=== PATIENT | male | born 1985 | race Asian ===

== ENCOUNTER 2024-07-14 17:56 | Emergency (ER) | payer OTHER, SELFPAY ==
[2024-07-14 17:58] VITALS: BP 132/81
--- NOTE | 2024-07-14 18:43 | ED.GENMED ---
History of Present Illness
General
Chief Complaint: Skin Problem
Source: patient
Exam Limitations: none
Time Seen by Provider: 07/14/24 18:15
History of Present Illness
History of Present Illness:
38yo right hand dominant male presenting for evaluation of a left index finger injury. Patient was putting a screw into drywall yesterday when he accidentally put the screw through the distal aspect of the index finger. The nail went through the
opposite side. He was able to remove the screw in its entirety. Patient wants to make sure that he does not have any bone injuries so decided to come to the ED. Unknown last tetanus.
Past History
Past History
ED Past Medical History: None
ED Past Surgical History: None
Social History
Tobacco: Non-smoker
Alcohol: Occasional
Drug: None
Personal:
Living: with family
Phy Exam
General Physical Exam
General Presentation: well appearing and no apparent distress
General age: appears stated age
General Skin: warm and dry
General Habitus: normal
General Mental: alert
ENT Exam
ENT Exam: normocephalic
Musculoskeletal Exam
Musculoskeletal Exam: other (L index finger: Puncture wound noted to the distal fingertip that is scabbed over. Does involve the distal aspect of the nail but nailbed is firmly in place. ROM of DIP and PIP joint intact. Cap refill and sensation
intact at fingertip.)
Skin Exam
Skin Exam: normal color and warm/dry
Psychiatric Exam
Psychiatric Exam: normal mood/affect
Course
Orders/Labs/Results
Orders:
Orders
07/14/24 18:41
Tetanus/Diphth/Acelpertussis [Adacel] 0.5 ml IM .ONCE ONE
CR Finger(s)/thumb Min 2 Vw Lt Urgent
Comment:
Reason For Exam: Nail injury to L index finger
Vital Signs
Initial and Last Documented VS:
Initial Vital Signs
Temp Pulse Resp BP Pulse Ox
98.4 F 77 16 132/81 100
07/14/24 17:58 07/14/24 17:58 07/14/24 17:58 07/14/24 17:58 07/14/24 17:58
Last Documented Vital Signs
Temp Pulse Resp BP Pulse Ox
98.4 F 81 16 128/78 100
07/14/24 17:58 07/14/24 20:02 07/14/24 20:02 07/14/24 20:02 07/14/24 20:02
MDM/Problems Addressed
Differential Diagnosis Includes:
38yoM here for a puncture wound to the L index finger after accidentally putting a metal nail through his finger. Injury was last night and he was able to remove the nail. Scabbed puncture wound noted on exam. ROM normal and digit is neurovascularly
intact. Differential diagnosis includes: puncture wound, fracture
Tdap updated. X-rays obtained which are negative for fractures per my interpretation. He was started on a course of Keflex for infection prophylaxis. Advised return to the ED with any signs of infection.
*Critical Care Note
Total Time (30-74mins, 75-104mins- exclusive of procedures): Not Applicable
ED Attending Note
-
Portions of this chart may have been created with voice recognition software.� Occasional wrong word or��sound alike� substitutions may have occurred due to the inherent limitations of voice recognition software.
Discharge Plan
Departure
Patient Disposition: Home (Routine Discharge)
Date of Disposition: 07/14/24
Time of Disposition: 19:58
Patient with high blood pressure during this ER visit?: No
Discharge Problem:
Puncture wound of left index finger
Instructions: Puncture Wound
Prescriptions:
New
cephalexin 500 mg capsule
500 mg PO Q6H 5 Days Qty: 20 0RF
No Action
ondansetron 4 MG tablet,disintegrating
4 mg PO TIDPRN PRN (Reason: nausea/vomiting) Qty: 10 0RF
penicillin V potassium 500 MG tablet
500 mg PO TID Qty: 21 0RF
tramadol 50 MG tablet
50 mg PO Q6HPRN PRN (Reason: PAIN) Qty: 11 0RF
Referrals:
Robin Finley MD [Family Provider] -
Activity Restrictions/Additional Instructions:
Take antibiotics as prescribed. Keep wound clean and dry.
Return to the ER with any signs of infection.
Interventions
Interventions:
*Risk Screen - Suicide Last Done: 07/14/24 17:58
*General Assessment Last Done: 07/14/24 17:58
*Neglect/Abuse Screening Last Done: 07/14/24 17:58
*ED- Fall Risk Assessment Last Done: 07/14/24 18:04
*ED COVID-19 Vaccine History Last Done: 07/14/24 18:04
*Nursing Disposition Last Done: 07/14/24 20:02
ED-Skin Assessment Last Done: 07/14/24 20:02
Discharge Date and Time
Discharge Date/Time: 07/14/24 20:06
Print Language: TOGOLESE
[2024-07-14] MEDS: ADACEL 0.5 ML IM (18:46)
[2024-07-14 20:02] VITALS: BP 128/78
== END 2024-07-14 20:06 | disposition home or self-care (01) ==
LOC: EMR 17:56
PROVIDERS: EMERGENCY PHYSICIAN Emergency Medicine; FAMILY PHYSICIAN Internal Medicine
DX: S61.231A Puncture wound without foreign body of left index finger without damage to nail, initial encounter (principal); W45.0XXA Nail entering through skin, initial encounter; Z23 Encounter for immunization
CPT/HCPCS: 90471; 99283; 73140; 90715

== ENCOUNTER 2024-09-29 01:33 | Emergency (ER) | payer OTHER, SELFPAY ==
[2024-09-29 01:44] VITALS: BP 128/76
--- NOTE | 2024-09-29 07:20 | ED.GENMED ---
History of Present Illness
General
Chief Complaint: Abdominal Symptoms
Source: patient
Exam Limitations: none
Time Seen by Provider: 09/29/24 04:39
Nursing documentation reviewed up to this point in time: agreed with
History of Present Illness
History of Present Illness:
Note:
CHIEF COMPLAINT(S)
Diarrhea
HISTORY OF PRESENT ILLNESS
The patient is a 38-year-old male who presented with diarrhea. He reported the onset of diarrhea approximately four days ago, with episodes occurring three to four times. The most recent occurrence was two hours prior to the consultation. The
patient denies the presence of blood in the stool and has not experienced fever. He mentioned a possible etiological factor, speculating it could be due to something he consumed. The patient expressed concern about the potential for a contagious
cause but noted that his daughter had typhoid.
PHYSICAL EXAM
- General: The patient appeared in no acute distress and was afebrile.
- Head: Moist mucous membranes.
- Cardiovascular: Regular rate and rhythm; normal heart sounds with no additional sounds.
- Pulmonary: No respiratory distress noted.
- Abdominal: Soft and non-tender, without distention or organomegaly.
- Rectal: Noted mild erythema upon examination.
PLAN
1. Considering outpatient testing for stool in the context of no fever and lack of diarrhea sample during the visit.
2. Patient education regarding hydration and monitoring for additional symptoms.
3. Follow-up recommended if symptoms persist or worsen.
DIFFERENTIAL DIAGNOSIS
The Differential Diagnosis includes, in no particular order and is not limited to:
1. Gastroenteritis
2. Foodborne illness
3. Inflammatory bowel disease
4. Irritable bowel syndrome
5. Lactose intolerance
6. Celiac disease
7. Medication-induced diarrhea
8. Infectious colitis
9. Travelers diarrhea
10. Diverticulitis
CARE-UPDATE
09/29/24 - 07:22
During this visit, the patient reports no diarrhea or fevers, with no presence of blood in stool. Blood cultures will be checked prior to discharge. Stool culture results are not available at this time. Return precautions have been provided to the
patient.
Disposition:
SUMMARY OF ENCOUNTER
The patient, a 38-year-old male, was seen in the emergency department for diarrhea that started approximately four days ago. He experienced episodes three to four times a day, with the most recent occurrence two hours before consultation. There is
no presence of blood in the stool and no fever reported. The patient is concerned about the potential contagious nature of the diarrhea, given his daughters recent typhoid diagnosis; however, he suspects the cause might be related to something he
consumed. A comprehensive physical examination showed no acute distress, afebrile status, moist mucous membranes, regular cardiovascular rhythm, no respiratory distress, and a soft, non-tender abdomen. Mild rectal erythema was noted.
PLAN
The patient was advised for outpatient stool testing considering the absence of fever and diarrhea sample during the visit. Patient education on the importance of staying hydrated and monitoring additional symptoms was provided. Follow-up care was
recommended should symptoms persist or worsen.
PATIENT EDUCATION AND COUNSELING
The patient was informed about the potential causes of diarrhea, such as dietary factors or infectious agents. He was educated on maintaining adequate hydration and monitoring for any new symptoms or changes in symptom severity. Return precautions
were given if symptoms did not improve or if they escalated.
FOLLOW-UP INSTRUCTIONS
The patient was advised to follow up with a healthcare provider if the symptoms persist or worsen to reassess the situation, as further evaluation might be necessary.
MEDICAL DECISION MAKING
-Complexity of Data Reviewed: Differential diagnosis considered includes gastroenteritis, foodborne illness, inflammatory bowel disease, irritable bowel syndrome, lactose intolerance, celiac disease, medication-induced diarrhea, infectious colitis,
travelers diarrhea, and diverticulitis.
-Risk: Consideration of admission/observation was discussed; however, the patient was managed with outpatient follow-up due to stable exam findings, absence of alarming symptoms, and patient�s ability to understand and comply with discharge
instructions.
DIAGNOSIS
- Diarrhea, unspecified (ICD-10 code: R19.7)
Past History
Past History
ED Past Medical History: None
ED Past Surgical History: None
Social History
Tobacco: Non-smoker
Alcohol: Occasional
Drug: None
Personal:
Living: with family
Phy Exam
Physical Exam
Physical Exam:
.
Sepsis
Sepsis Screening
Sepsis Assessment: Sepsis Ruled Out
Sepsis Screen
Sepsis Screen: Sepsis Ruled Out
Date: 09/29/24
Time: 07:24
Course
Orders/Labs/Results
Orders:
Orders
09/29/24 07:00
Blood Culture Q30M
DEEP Source: Blood/Venous
Specimen Description:
09/29/24 07:30
Blood Culture Q30M
DEEP Source: Blood/Venous
Specimen Description:
Vital Signs
Initial and Last Documented VS:
Initial Vital Signs
Temp Pulse Resp BP Pulse Ox
97.9 F 64 20 128/76 100
09/29/24 01:44 09/29/24 01:44 09/29/24 01:44 09/29/24 01:44 09/29/24 01:44
Last Documented Vital Signs
Temp Pulse Resp BP Pulse Ox
97.9 F 64 20 128/76 100
09/29/24 01:44 09/29/24 01:44 09/29/24 01:44 09/29/24 01:44 09/29/24 01:44
*Pulse Oximetry
SaO2: 100
Oxygen Mode of Delivery: Room air
Patient hypoxic: no
*Critical Care Note
Total Time (30-74mins, 75-104mins- exclusive of procedures): Not Applicable
ED Attending Note
-
Portions of this chart may have been created with voice recognition software.� Occasional wrong word or��sound alike� substitutions may have occurred due to the inherent limitations of voice recognition software.
Discharge Plan
Departure
Patient Disposition: Home (Routine Discharge)
Date of Disposition: 09/29/24
Time of Disposition: 07:23
Patient with high blood pressure during this ER visit?: Yes
Condition: Good
Discharge Problem:
Diarrhea
Instructions: Diarrhea in teens and adults, Randall Diet, BLOOD PRESSURE
Prescriptions:
No Action
ondansetron 4 MG tablet,disintegrating
4 mg PO TIDPRN PRN (Reason: nausea/vomiting) Qty: 10 0RF
penicillin V potassium 500 MG tablet
500 mg PO TID Qty: 21 0RF
tramadol 50 MG tablet
50 mg PO Q6HPRN PRN (Reason: PAIN) Qty: 11 0RF
cephalexin 500 mg capsule
500 mg PO Q6H 5 Days Qty: 20 0RF
Referrals:
NONE,* [Family Provider, Internal Medicine]
Activity Restrictions/Additional Instructions:
Follow up with primary care in 3-5 days. Return for any concerns.
Interventions
Interventions:
*Risk Screen - Suicide Last Done: 09/29/24 01:44
*General Assessment Last Done: 09/29/24 06:03
*Neglect/Abuse Screening Last Done: 09/29/24 01:44
*ED- Fall Risk Assessment Last Done: 09/29/24 06:03
*ED COVID-19 Vaccine History Last Done: 09/29/24 06:03
WI-Xsfsxr-Mjuvhxwjci Assessment Last Done: 09/29/24 06:04
Discharge Date and Time
Print Language: KINYARWANDA
[2024-09-29 07:27] VITALS: BMI 22.5
== END 2024-09-29 07:45 | disposition home or self-care (01) ==
LOC: EMR 01:33
PROVIDERS: EMERGENCY PHYSICIAN Emergency Medicine
DX: R19.7 Diarrhea, unspecified (principal)
CPT/HCPCS: 99283; 87040